=== PATIENT | female | born 1985 | race Caucasian/White ===

== ENCOUNTER 2016-05-08 17:09 | Inpatient (IN) | payer SELFPAY ==
[~2016-05-08] VITALS: Ht 157.5 cm; Wt 67.0 kg
[2016-05-11] MEDS ORDERED: KEFLEX-DPS500 MG PO (16:54)
--- NOTE | 2016-05-14 11:42 | DS ---
ADMIT: 05/08/2016 RM/LOC: 511 [facility] MR#: [id number] [address] [address] MABEL NGUY[address]N [address] [place], [place] [id number] Discharge Summary SEX: F AGE: 31 : 1985 ADMISSION DATE: 05/08/2016 DISCHARGE DATE: 05/11/2016 DISCHARGE DIAGNOSES: 1. Sepsis resolved. 2. E (Escherichia) coli bacteremia. 3. Pyelonephritis with E (Escherichia) coli UTI (urinary tract infection). 4. Nausea and vomiting resolved. REASON FOR ADMISSION: A 31-year-old female who presented to [facility] emergency room on the day of admission with complaints of nausea, vomiting, and left flank pain. She was found to have pyelonephritis and UTI and was admitted for further evaluation and treatment. For complete details, please see H and P dictated on the day of admission. HOSPITAL COURSE: At the time of admission, the patient was placed in a telemetry bed. She was given IV fluids, antiemetics, and pain medications, as well as antibiotics were started with Rocephin. She ended up growing blood cultures 2/2 positive were positive for E coli. It was also found greater than 100,000 in her urine. It was noted to be pansensitive. Pain control was effective. Nausea control was effective. She slowly improved. Ambulated and ate without difficulties. Was thought to be ready for discharge on 05/11 and antibiotics were changed to an oral cephalosporin. DISCHARGE MEDICATIONS: Found on discharge medication list. DISCHARGE ACTIVITY: As tolerated. DISCHARGE DIET: As tolerated. The patient will have follow up with myself or her primary care provider each in the next 7 days or so. Cheikh Ulloa MD/ tara JOB #: [id number] CC: Cheikh Ulloa MD, Attending Physician Cheikh Ulloa MD, Family Physician
--- NOTE | 2016-05-14 11:42 | HP ---
ADMIT: 05/08/2016 RM/LOC: [address] [facility] MR#: [id number] ACC#: [id number] [address] [address] MABEL NGUY[address]N [address] [place], [place] [id number] History and Physical SEX: F AGE: 31 : 1985 DATE OF SERVICE: CHIEF COMPLAINT: Flank pain and fever. HISTORY OF PRESENT ILLNESS: The patient is a very pleasant, 31-year-old female. She has a past medical history of spontaneous vaginal delivery, prior pyelonephritis in 2003, who presents to [facility] emergency room today with complaints of not feeling well for the last 48 hours or so, noted flank pain with some dysuria, urinary frequency, dark urine, rated pretty severe 8+/10 with some pain going from the flank into her groin. She also has noted associated fevers and chills as well as nausea and vomiting. In the emergency room, she was found to have a UTI and leukocyte esterase consistent with pyelonephritis. She is admitted for further evaluation and treatment. This morning, patient states she is feeling much better. Her pain is under better control, and she has no nausea or vomiting. No chest pain noted. No bowel or bladder complaints noted. PAST MEDICAL HISTORY: 1. Pyelonephritis in 2003. 2. Spontaneous vaginal delivery. No other past medical history or surgeries are noted. ALLERGIES: NONE. HOME MEDICATIONS: None. FAMILY HISTORY: No significant family history. REVIEW OF SYSTEMS: As noted above. All other systems are reviewed and negative. PHYSICAL EXAMINATION: VITAL SIGNS: T-max is 102.4, T-current is 97.3, 88, 12, 91/55, 98% on room air. GENERAL: This is a thin female. She is in no apparent distress. She is awake, alert, and oriented x3 and is cooperative with the examiner. HEENT: Normocephalic and atraumatic. Mucous membranes are moist. NECK: Supple without lymphadenopathy. LUNGS: Clear to auscultation bilaterally without wheezes, rhonchi, or rales. HEART: Regular rate and rhythm without murmurs, clicks, or rubs. ABDOMEN: Soft. She does have left costovertebral angle tenderness. She does not have any tenderness throughout her belly. She is nondistended. EXTREMITIES: Show no edema. SKIN: Shows no rashes. NEURO: Cranial nerves II through XII are intact. I do not notice any focal deficits. LABORATORY DATA: Her lab work is reviewed. Her hemoglobin is 12.3, and 205,000 platelets, her white count is 17.3. Sodium 140, potassium 3.7, chloride 106, bicarb 24, BUN is 6 with a creatinine of 0.7. Her calcium is 8. ADMIT: 05/08/2016 RM/LOC: [address] [facility] MR#: [id number] [address] [address] MABEL NGUYỄN [facility] [place], [place] [id number] History and Physical SEX: F AGE: 31 : 1985 Urinalysis shows 1+ blood, positive nitrite, positive leukocyte esterase, 14 white cells, 6 red cells, 1 squamous cell, procalcitonin is 1.76 with a lactic acid of 0.6. Her test was negative. Urine and blood cultures are pending. ASSESSMENT AND PLAN: 1. Pyelonephritis. 2. Nausea and vomiting, resolved. At this point, the patient is feeling much better. We will continue with IV fluids, antiemetics, and pain medicines. We will try her on some oral pain medicines right now. We will try to let her ambulate a little bit. As mentioned, we will advance her diet. If she does well taking orals,and if she is feeling better and continues to be afebrile, could think about discharge home on oral antibiotics later today with close followup of cultures. We will see how she does and follow her closely as an inpatient. Cheikh Ulloa MD/ natacha JOB #: [id number] CC: Cheikh Ulloa, Attending Physician Cheikh Ulloa, Family Physician
--- NOTE | 2016-05-20 11:20 | ER ---
ADMIT: 05/08/2016 RM/LOC: [address] [facility] MR#: [id number] ACC#: [id number] [address] [address] MABEL NGUY[address]N [address] [place], [place] [id number] Emergency Room Report SEX: F AGE: 31 : 1985 DATE: 05/08/2016 CHIEF COMPLAINT: Dysuria and left-sided flank pain. HISTORY OF PRESENT ILLNESS: This is a 31-year-old who started to have this flank pain just within the last couple of days with some dysuria. She rates her pain at 8/10 and it radiates into her groin. COURSE IN THE EMERGENCY ROOM: CBC showed a white count of 18.2. Her lactic acid normal at 0.7. Her initial urine showed positive nitrites, 3 leukocyte esterase, 84 white blood cells, a few white blood cell clumps, and a few bacteria. The second urine is pending. Initially, I talked to this patient about going home after giving her 2 L of fluid, Zofran, and morphine for pain and nausea and 2 g of Rocephin. Initially, she want to try to go home, but then when I talked to her again, she was still nauseated. She is having a lot of pain. She preferred to stay overnight in the hospital. Her second urine actually did show positive nitrites, 2+ esterase, 14 white blood cells. The culture setup will be done on that. She is actually Dr. Champagne patient, so I initially tried to call Dr. Mendoza to see if he would want to admit since he was product/industry consultant for family practice in his group. Due to her not being a patient of [facility], he prefers the patient going to [facility]. I talked to both Clarice Dunaway and Cheikh Ulloa. Since she is more infectious, Clarice Dunaway felt more comfortable with Dr. Ulloa taking care of it. Dr. Ulloa was happy to admit. CLINICAL IMPRESSION: Pyelonephritis. DISPOSITION: She is stable at admit. WIL Armas / Calvin Daly MD / natacha JOB #: [id number] CC: Cheikh Ulloa MD, Attending Physician Cheikh Ulloa MD, Family Physician
== END 2016-05-11 12:35 | disposition home or self-care (01) | DRG 872 ==
LOC: ER 17:09 → 5MS 21:07
PROVIDERS: ADMIT Internal Medicine
DX: A41.51 Sepsis due to Escherichia coli [E. coli] (principal); N12 Tubulo-interstitial nephritis, not specified as acute or chronic; D64.9 Anemia, unspecified